=== PATIENT | female | born 2000 | race American Indian/Alaskan Native ===

== ENCOUNTER 2018-01-06 15:14 | Emergency (ER) | payer OTHER ==
[~2018-01-06] VITALS: Ht 180.3 cm; Wt 83.0 kg
[~2018-01-06 15:14] MED LIST: ADVIL200 MG; CEPHALEXIN500 MG PO; NORCO 5-325 TA1 EACH PO; ULTRAM50 MG PO
[2018-01-06] MEDS ORDERED: NAPROSYN500 MG PO (16:00)
== END 2018-01-06 16:30 | disposition home or self-care (01) ==
LOC: ED 15:14
DX: S16.1XXA Strain of muscle, fascia and tendon at neck level, initial encounter (principal); S39.012A Strain of muscle, fascia and tendon of lower back, initial encounter; Z88.0 Allergy status to penicillin; V43.62XA Car passenger injured in collision with other type car in traffic accident, initial encounter; W22.12XA Striking against or struck by front passenger side automobile airbag, initial encounter
CPT/HCPCS: 71046; 72040; 72100; 99283

== ENCOUNTER 2018-02-11 16:22 | Emergency (ER) | payer OTHER ==
[~2018-02-11] VITALS: Ht 180.3 cm; Wt 83.0 kg
[~2018-02-11 16:22] MED LIST changes: +NAPROSYN500 MG PO
[2018-02-11] MEDS ORDERED: BACLOFEN10 MG PO (17:38)
[2018-02-11] MEDS ORDERED: KETOROLAC TROME10 MG PO (17:38)
== END 2018-02-11 17:49 | disposition home or self-care (01) ==
LOC: ED 16:22
DX: M99.03 Segmental and somatic dysfunction of lumbar region (principal); Z88.0 Allergy status to penicillin; Z79.899 Other long term (current) drug therapy
CPT/HCPCS: 99282

== ENCOUNTER 2019-01-04 16:34 | Emergency (ER) | payer OTHER ==
[~2019-01-04] VITALS: Ht 180.3 cm; Wt 83.0 kg
[~2019-01-04 16:34] MED LIST changes: +BACLOFEN10 MG PO; +KETOROLAC TROME10 MG PO
== END 2019-01-04 17:42 | disposition home or self-care (01) ==
LOC: ED 16:34
DX: S83.91XA Sprain of unspecified site of right knee, initial encounter (principal); Z88.0 Allergy status to penicillin; Z79.899 Other long term (current) drug therapy; W00.0XXA Fall on same level due to ice and snow, initial encounter
CPT/HCPCS: 73560; 99283

== ENCOUNTER 2020-03-20 02:08 | Emergency (ER) | payer OTHER ==
[~2020-03-20] VITALS: Ht 180.3 cm; Wt 83.0 kg
== END 2020-03-20 11:40 | disposition home or self-care (01) ==
LOC: ED 02:08
DX: S61.512A Laceration without foreign body of left wrist, initial encounter (principal); Z88.1 Allergy status to other antibiotic agents; X78.9XXA Intentional self-harm by unspecified sharp object, initial encounter
CPT/HCPCS: 80053; 80176; 81001; 84443; 84703; 85025; 90471; 90715; 99285-25; G0480

== ENCOUNTER 2022-02-12 09:08 | Emergency (ER) | payer OTHER ==
[~2022-02-12] VITALS: Ht 180.3 cm; Wt 104.3 kg
== END 2022-02-12 11:59 | disposition home or self-care (01) ==
LOC: ED 09:08
DX: M23.92 Unspecified internal derangement of left knee (principal); Z88.0 Allergy status to penicillin
CPT/HCPCS: 73560; 99283-25

== ENCOUNTER 2022-09-14 06:47 | Emergency (ER) | payer OTHER ==
[~2022-09-14] VITALS: Ht 180.3 cm; Wt 111.0 kg
--- NOTE | 2022-09-14 17:06 | EKG ---
[facility] [address] [facility] [place], [place] [address] Signed Sinus tachycardia Otherwise normal ECG Confirmed by ABNER GUILLEN MD ([id number]) on 09/14/2022 5:05:57 PM Electronically Signed By: ABNER GUILLEN MD 09/14/22 1706 PATIENT NAME: SUBHASHJULY HOLSTEIN Electrocardiogram DATE OF : [birth year] PHYSICIAN: ABNER GUILLEN MD REPORT #: [id number] REPORT IS CONFIDENTIAL AND NOT TO BE RELEASED WITHOUT AUTHORIZATION
== END 2022-09-14 08:09 | disposition home or self-care (01) ==
LOC: ED 06:47
DX: R07.9 Chest pain, unspecified (principal); F14.10 Cocaine abuse, uncomplicated; Z88.0 Allergy status to penicillin
CPT/HCPCS: 36415; 80053; 84484; 85025; 93005; 93010; 96374; 96375; 99285-25; J2060; J2405; J7030

== ENCOUNTER 2023-02-11 14:40 | Emergency (ER) | payer OTHER ==
[~2023-02-11] VITALS: Ht 177.8 cm; Wt 110.7 kg
[2023-02-11] MEDS ORDERED: BENZONATATE100 MG PO ×2 (17:38→17:57)
[2023-02-11] MEDS ORDERED: PREDNISONE20 MG PO ×2 (17:38→17:57)
[2023-02-11] MEDS ORDERED: VENTOLIN HFA18 GM INH ×2 (17:38→17:57)
== END 2023-02-11 18:15 | disposition home or self-care (01) ==
LOC: ED 14:40
DX: J20.8 Acute bronchitis due to other specified organisms (principal); Z20.822 Contact with and (suspected) exposure to COVID-19; Z88.0 Allergy status to penicillin
CPT/HCPCS: 71045; 87502; 99284-25; A9270-GY; J2060; U0003

== ENCOUNTER 2023-07-26 11:15 | Emergency (ER) | payer OTHER ==
[~2023-07-26] VITALS: Ht 177.8 cm; Wt 111.9 kg
[~2023-07-26 11:15] MED LIST changes: +BENZONATATE100 MG PO; +PREDNISONE20 MG PO; +VENTOLIN HFA18 GM INH
[2023-07-26 12:15] LABS: BASOPHILS 0.4 % (0-2); HEMATOCRIT 44.9 % (35.0-50.0); HEMOGLOBIN 14.8 g/dL (12.0-18.0); LYMPHOCYTES 7.1 % (24-44); MCH 30.2 (27-36); MCV 91.3 fl (81-99); NEUTROPHILS 77.5 % (39-80); PLATELET COUNT 235 K/uL (140-440); RBC 4.92 M/ul (4.3-5.7); RDW 16.4 (10.5-15.0)
[2023-07-26 12:25] LABS: ALBUMIN 3.7 g/dL (3.4-5.0); ANION GAP 13.6 (7-21); BILIRUBIN, TOTAL 1.1 ng/dL (0.2-1.0); BUN/CREATININE RATIO 3.94 (6.0-28.6); CREATININE, SERUM 0.76 mg/dL (0.55-1.02); POTASSIUM 3.6 mmol/L (3.5-5.1); PROTEIN, TOTAL 7.4 g/dL (6.4-8.2)
[2023-07-26 12:44] LABS: INFLUENZA B NAA NEGATIVE (NEGATIVE); RESPIRATORY SYNCYTIAL VIR NAA NEGATIVE (NEGATIVE)
[2023-07-26] MEDS ORDERED: ONDANSETRON ODT8 MG PO (12:56)
[2023-07-26 13:10] VITALS: BP 133/97
== END 2023-07-26 13:11 | disposition home or self-care (01) ==
LOC: ED 11:15
PROVIDERS: Emergency Medicine
DX: U07.1 COVID-19 (principal); Z88.0 Allergy status to penicillin
CPT/HCPCS: 36415; 76705; 80053; 83690; 84703; 85025; 87502; 96374; 96375; 99284-25; C9803; J1885; J2405; J7030; U0002

== ENCOUNTER 2025-08-17 10:49 | Emergency (ER) | payer OTHER ==
[~2025-08-17] VITALS: Ht 177.8 cm; Wt 107.3 kg
[~2025-08-17 10:49] MED LIST changes: +ONDANSETRON ODT8 MG PO
[2025-08-17 11:17] VITALS: BP 125/77
== END 2025-08-17 11:19 | disposition left against medical advice (07) ==
LOC: ED 10:49
DX: Z02.89 Encounter for other administrative examinations (principal); O99.322 Drug use complicating pregnancy, second trimester; F19.90 Other psychoactive substance use, unspecified, uncomplicated; Z3A.26 26 weeks gestation of pregnancy; Z53.29 Procedure and treatment not carried out because of patient's decision for other reasons; Z88.0 Allergy status to penicillin
CPT/HCPCS: 99283

== ENCOUNTER 2025-10-26 05:40 | Inpatient (IN) | payer OTHER ==
[~2025-10-26] VITALS: Ht 177.8 cm; Wt 99.8 kg
[2025-10-26 06:41] LABS: AMNISURE ROM TEST POSITIVE
[2025-10-26] MEDS ORDERED: CALCIUM CARBONATE 500 MG CHEW PO PRN (07:45)
[2025-10-26] MEDS ORDERED: MAGNESIUM HYDROXIDE/AL HYDROX 30 ML CUP PO PRN (07:45)
[2025-10-26] MEDS ORDERED: TERBUTALINE SULFATE 1 MG/ML AMP SUB-Q PRN (07:45)
[2025-10-26] MEDS ORDERED: LIDOCAINE HCL 1% 30 ML SDV INJ PRN (07:45)
[2025-10-26] MEDS ORDERED: miSOPROStol 25 MCG TAB PO SCH (08:00)
[2025-10-26 08:18] LABS: MCH 30.3 PG (25.6-32.2); MCHC 33.7 g/dL (32.2-35.5); MCV 90.0 fL (79.4-94.8); RBC 4.09 M/uL (3.93-5.22)
[2025-10-26 09:02] LABS: AMPHETAMINES, URINE NEGATIVE (NEGATIVE); BARBITURATES, URINE NEGATIVE (NEGATIVE); BENZODIAZEPINE, URINE NEGATIVE (NEGATIVE); CANNABINOID, URINE NEGATIVE (NEGATIVE); COCAINE, URINE NEGATIVE (NEGATIVE); ECSTASY, URINE NEGATIVE (NEGATIVE); FENTANYL, URINE NEGATIVE (NEGATIVE); METHADONE, URINE NEGATIVE (NEGATIVE); OPIATES, URINE NEGATIVE (NEGATIVE); OXYCODONE, URINE NEGATIVE (NEGATIVE); PHENCYCLIDINE, URINE NEGATIVE (NEGATIVE)
[2025-10-26 09:07] LABS: ABO O; ANTIBODY SCREEN NEGATIVE; RH POSITIVE
[2025-10-26 09:31] VITALS: BP 111/69
[2025-10-26] MEDS ORDERED: OXYTOCIN/0.9 % SODIUM CHLORIDE 500 ML IV SCH (15:15)
[2025-10-26] MEDS ORDERED: LACTATED RINGER'S 1,000 ML IV PRN (16:30)
[2025-10-26] MEDS ORDERED: PENICILLIN G POTASSIUM 5 MUNITS in SODIUM CHLORIDE 0.9% 100 ML IV ONE (21:15)
--- NOTE | 2025-10-26 21:30 | PR ---
[facility] [address] [place], [place] [address] Signed Progress Notes IP Datetime Report Generated by CPN: 10/26/2025 21:30 PROGRESS NOTES: [id number] Impression: Reassuring Heart Rate Procedures: Intrauterine Pressure Catheter; Sterile Vag Exam Plan: Augmentation; Antibiotic Therapy Informed Consent Obtain: Vaginal Delivery; Risks, Benefits and Alternatives Discussed Other Informed Consents: Reviewed antibiotics VITAL SIGNS: [id number] Vital Signs: Reviewed; Within Normal Limits Vital Signs: Reviewed; Within Normal Limits EXAM: [id number] Dilatation: 1.5 Effacement: 60 Effacement: 70 Effacement: 60 Station: -3 Station: -3 Station: -3 Contractions: Irregular MEMBRANES: [id number] Amniotic Fluid Color: Clear ROM Note: Amnisure collected Comments: Pt seen and examined. Doing well. S/P 2 doses of oral cytotec. Pitocin was started at _16:30 and now at 6. Contractions mild and irregular. Cx now 1.5cm. Recommended IUPC to help us titrate pitocin to optimal level. Pt understands and agrees. IUPC placed w/out difficulty. Will titrate pit per protocol (low dose pit). Discussed GBS+ status and recommended initiation of abx. Pt reports "mild hives as a really young child" and no interval allergic reactions since. Recommended trial of PCN for prophylaxis and pt agrees. Will start now. All questions answered. Minimize SVE to decrease risk of chorio. All questions answered. Anticipate . FETUS A: [id number] FHR Baseline: 140 FHR Baseline: 145 Variability: Minimal - >Undetectable to <=5bpm Accelerations: 15X15 Decelerations: None FHR Category: Category II Presentation: Vertex *Electronically Signed* 10/26/252129 KIZZY WORKMAN) DO [facility] DATE OF : [birth year] PHYSICIAN: KIZZY WORKMAN) RPT #: [id number] REPORT IS CONFIDENTIAL AND NOT TO BE RELEASED WITHOUT AUTHORIZATION [facility] [address] [place] [id number] Signed Comments on Fetus A: No evidence of metabolic acidosis Comments on Fetus A: Reassuring for dates FETUS B: [id number] Signing Physician: Kizzy Workman DO Copies: ~ *Electronically Signed* 10/26/252129 KIZZY WORKMAN) DO [facility] DATE OF : [birth year] PHYSICIAN: KIZZY WORKMAN (SUZI) DO RPT #: [id number] REPORT IS CONFIDENTIAL AND NOT TO BE RELEASED WITHOUT AUTHORIZATION
[2025-10-27] MEDS ORDERED: PENICILLIN G POTASSIUM 2.5 MUNITS in SODIUM CHLORIDE 0.9% 100 ML IV SCH (01:15)
[2025-10-27] MEDS ORDERED: ePHEDrine sulfate 5 MG/ML SYRINGE IV PRN (01:15)
[2025-10-27] MEDS ORDERED: LACTATED RINGER'S 500 ML IV PRN (01:15)
[2025-10-27] MEDS ORDERED: ROPIVACAINE 0.2% 200 ML BAG EPIDURAL SCH (01:15)
[2025-10-27] MEDS ORDERED: LACTATED RINGER'S 2,000 ML IV ONE (01:15)
[2025-10-27] MEDS ORDERED: ROPIVACAINE 0.2% 200 ML BAG ONE (01:18)
--- NOTE | 2025-10-27 03:57 | PR ---
[facility] [address] [facility] [place], [place] [address] Signed Progress Notes IP Datetime Report Generated by CPN: 10/27/2025 03:57 Impression: Normal Progression of Labor; Reassuring Heart Rate Procedures: Intrauterine Pressure Catheter; Sterile Vag Exam Plan: Continue Present Management; Augmentation Informed Consent Obtain: Vaginal Delivery Dilatation: 1.5 Effacement: 60 Effacement: 60 Station: -3 Station: -3 Contractions: q 2-3 min Comments: Pt seen and examined. Doing well. Comfortable w/ epidural which was kindly placed by anesthesia. IUPC stopped working and RN requested replacement to help w/ pitocin monitoring. Cervix largely unchanged howevere softer and much more anterior. IUPC replaced w/out difficulty. Continue pitocin augmentation. Reviewed Cat 1 tracing, afebrile status, and tolerated pen G well. Variability: Moderate 6-25bpm Decelerations: None FHR Category: Category I Signing Physician: Kizzy Workman DO Copies: ~ *Electronically Signed* 10/27/25 0357 KIZZY WORKMAN (SUZI) DO PATIENT NAME: CULLENJULY CHANDLER PROGRESS NOTE DATE OF : [birth year] PHYSICIAN: KIZZY WORKMAN) DO RPT #: [id number] REPORT IS CONFIDENTIAL AND NOT TO BE RELEASED WITHOUT AUTHORIZATION
[2025-10-27] MEDS ORDERED: SODIUM CHLORIDE 0.9% 20 ML IV ONE (16:34)
[2025-10-27] MEDS ORDERED: Ropivacaine HCl 0.5% 30 ML VIAL ONE (16:34)
[2025-10-27] MEDS ORDERED: fentaNYL citrate 100 MCG/2 ML VIAL ONE ×3 (16:35→23:36)
[2025-10-27] MEDS ORDERED: LACTATED RINGER'S 1,000 ML IV SCH (20:45)
[2025-10-27] MEDS ORDERED: MORPHINE SULFATE 1 MG/ML VIAL ONE ×2 (22:06→23:36)
[2025-10-27] MEDS ORDERED: CEFAZOLIN SODIUM 2 GM in SODIUM CHLORIDE 0.9% 100 ML IV SCH (22:37)
[2025-10-27] MEDS ORDERED: AZITHROMYCIN 500 MG in DEXTROSE 5% 250 ML IV ONE (22:45)
[2025-10-27] MEDS ORDERED: CEFAZOLIN SODIUM 3 GM in SODIUM CHLORIDE 0.9% 100 ML IV SCH (22:59)
[2025-10-27 23:00] LABS: IS CROSSMATCH COMPATIBLE
[2025-10-27] MEDS ORDERED: TRANEXAMIC ACID IN NACL,ISO-OS 100 ML IV ONE (23:10)
[2025-10-27 23:24] LABS: ABO O; RH POSITIVE
[2025-10-27] MEDS ORDERED: LIDOCAINE HCL 2% 5 ML SDV ONE (23:36)
[2025-10-27] MEDS ORDERED: BUPIVACAINE 0.75% IN DEXTROSE 2 ML AMP ONE (23:36)
[2025-10-27] MEDS ORDERED: OXYTOCIN 10 UNITS/ML VIAL ONE (23:36)
[2025-10-27] MEDS ORDERED: PHENYLEPHRINE HCL IN 0.9% NACL 1 MG/10 ML SYR ONE (23:51)
[2025-10-28] MEDS ORDERED: HYDROmorphone HCL 1 MG/ML SYR IV PRN (00:30)
[2025-10-28] MEDS ORDERED: PROCHLORPERAZINE EDISYLATE 10 MG/2 ML VIAL IV PRN ×2 (00:30→01:15)
[2025-10-28] MEDS ORDERED: NALOXONE HCL 0.4 MG SYR IV PRN (00:30)
[2025-10-28] MEDS ORDERED: SODIUM CHLORIDE 0.9% 20 ML IV ONE (00:31)
[2025-10-28] MEDS ORDERED: DEXAMETHASONE SOD PHOS 4 MG/ML VIAL ONE (00:31)
[2025-10-28] MEDS ORDERED: Ropivacaine HCl 0.5% 30 ML VIAL ONE (00:31)
[2025-10-28] MEDS ORDERED: miSOPROStol 200 MCG TAB PR ONE (01:00)
[2025-10-28] MEDS ORDERED: SENNOSIDES/DOCUSATE 1 EA TAB PO SCH (01:08)
[2025-10-28] MEDS ORDERED: LACTATED RINGER'S 1,000 ML IV SCH (01:10)
[2025-10-28] MEDS ORDERED: PROMETHAZINE HCL 25 MG SUPP PR PRN (01:15)
[2025-10-28] MEDS ORDERED: METOCLOPRAMIDE HCL 10 MG/2 ML SDV IV PRN (01:15)
[2025-10-28] MEDS ORDERED: LIDOCAINE 2% VISCOUS 6 ML SYR TOP ONE (01:15)
[2025-10-28] MEDS ORDERED: OXYCODONE HCL 5 MG TAB PO PRN (01:15)
[2025-10-28] MEDS ORDERED: OXYTOCIN/0.9 % SODIUM CHLORIDE 500 ML IV SCH (01:15)
[2025-10-28] MEDS ORDERED: PROMETHAZINE HCL 25 MG TAB PO PRN (01:15)
[2025-10-28 01:36] VITALS: BP 107/73
--- NOTE | 2025-10-28 01:47 | NUR ---
10/28/25 0147 PALOMO MACK 0114 PT ARRIVED TO PACU IN [facility] ROOM 105 VIA STREACHER FROM [place]. PT HAS NATURAL AIRWAY, PT IS AWAKE AND ORIENTED. PT BREATHING EQUAL AND UNALBORED. PT HAS LR WITH 20 UNITS OF PIT RUNNING INTO IV IN RIGHT HAND CONTUNOUSLY. PT HAS SALINE LOCKED IV IN LEFT FOREARM. PT REPORTS NO PAIN OR NAUSEA AT THIS TIME. PT SPOUSE IN ROOM WITH BABY. VITALS TAKEN, REPORT TAKEN FROM PARMINDER SWIFT. 0120 VITALS TAKEN. FUNDLE MASSAGE DONE NOTED. PT REPORTS NO PAIN OR NAUSEA. PT SPINAL IS NOTED. 0125 VITALS TAKEN AND FUNDLE MASSAGE DONE NOTED. DR IN ROOM SPEAKING WITH PT. 0130 VITALS TAKEN AND FUNDLE MASSAGE DONE NOTED. [facility] RN IN ROOM ASSISTING WITH PT WITH BABY AT BREAST 0136 REPORT GIVEN TO [facility] RN, CARE TRANSFERRED AT THIS TIME. SPINAL IS AT NIPPLE LINE NOTED. PT REPORTS NO PAIN OR NAUSEA AT THIS TIME. PT BREATHING EQUAL AND UNLABORED. PT HAS BABY AT BREAST. LR WITH 20 UNITS OF PIT CONTINUES TO RUN INTO IV IN RIGHT HAND CONTINUOUSLY. PT HAS NO QUESTIONS AT THIS TIME.
[2025-10-28] MEDS ORDERED: ACETAMINOPHEN 500 MG TAB PO SCH (06:00)
[2025-10-28] MEDS ORDERED: SIMETHICONE 80 MG CHEW PO SCH (07:00)
[2025-10-28] MEDS ORDERED: IBUPROFEN 600 MG TAB PO SCH (14:30)
[2025-10-29] MEDS ORDERED: IBUPROFEN 600 MG TAB PO SCH (02:00)
--- NOTE | 2025-10-29 10:06 | OR ---
[address] [address] Signed DATE OF OPERATION: 10/27/2025 SURGEON: Tarsha Lehman MD PREOPERATIVE DIAGNOSES: 1. Intrauterine at 37 and 3/7th weeks. 2. Premature rupture of membranes. 3. Maternal intolerance of labor. 4. Nonreassuring surveillance. POSTOPERATIVE DIAGNOSES: 1. Intrauterine at 37 and 3/7th weeks. 2. Premature rupture of membranes. 3. Maternal intolerance of labor. 4. Nonreassuring surveillance. PROCEDURE: Primary low transverse section. FINDINGS: Clear amniotic fluid, female fetus in vertex presentation. Apgars of 8 and 9, weight of 4030 g or 8 pounds 14 ounces. Normal uterus, ovaries, and tubes. ANESTHESIA: Spinal. SILVER MINER BLASTING: None. IV FLUIDS: 450 mL of crystalloid. QUANTITATIVE BLOOD LOSS: 645 mL. URINE OUTPUT: 60 mL of clear urine. DRAINS: Terry to gravity. Electronically Signed By: TARSHA LEHMAN MD 10/29/25 1006 PATIENT NAME: JULY CULLEN CABOT OPERATIVE REPORT DATE OF : [birth year] REPORT #: [id number] PHYSICIAN: TARSHA LEHMAN MD PCP: LAQUITA AUGUSTINE PAC REPORT IS CONFIDENTIAL AND NOT TO BE RELEASED WITHOUT AUTHORIZATION [address] [address] Signed SPECIMENS: None. COUNTS: Correct x2. COMPLICATIONS: None apparent. TECHNIQUE IN DETAIL: With informed consent, the patient was taken to the operating room, where spinal anesthetic was placed. She was given 3 g of Ancef intravenously and 500 mg of azithromycin IV per protocol. Her lower extremities were placed in pneumatic compression devices using SCDs for DVT prophylaxis. She was prepped and draped in sterile fashion including the vaginal prep. Time-out was performed per protocol. Under adequate spinal analgesia, an approximately 8-inch Pfannenstiel skin incision was made. Sharp dissection was carried down to the layer of rectus fascia which was nicked in the midline. This rectus fascial leslee was enlarged bilaterally using sharp dissection both left and right sides. The rectus muscles were taken down from the fascia using a combination of sharp and blunt dissection both superiorly and inferiorly. The rectus muscles were in the midline at the most superior aspect and the separation was carried out inferiorly using sharp dissection. The parietal peritoneum was entered bluntly and the peritoneal opening was enlarged with combination of sharp and then blunt dissection. A bladder blade was then placed. Using a scalpel, low transverse uterine incision was made. Sharp dissection was carried down to the superficial layers of the incision. The remainder of the myometrium and endometrium were punctured with surgeon's finger. Once uterine cavity was breached, the hysterotomy site was enlarged using blunt dissection in a superior to inferior direction. The surgeon's hand was then placed into the lower uterine segment. head was elevated and delivered with fundal pressure and gentle traction in the axilla. Cord was clamped x2 after approximately 15 seconds and the cord was cut and the baby was handed to the respiratory team present for transition of the fetus. Intravenous oxytocin was given. Cord blood was taken per protocol. The placenta delivered with fundal massage and gentle traction. The uterus was a bit boggy, so we injected her with 0.2 mg of Methergine IM. This improved uterine tone. We also gave her 1 g of tranexamic acid intravenously for hemorrhage prophylaxis. Uterus was externalized and the uterine cavity was curetted with laparotomy sponges removing all clots and product of conception. The uterine incision was then closed using 0 Monocryl Electronically Signed By: TARSHA LEHMAN MD 10/29/25 1006 [facility] RE[facility] DATE OF : [birth year] REPORT #: [id number] PHYSICIAN: TARSHA LEHMAN MD PCP: LAQUITA AUGUSTINE PAC REPORT IS CONFIDENTIAL AND NOT TO BE RELEASED WITHOUT AUTHORIZATION [facility] [address] [place], [place] [address] Signed in a running locked fashion. Second imbricating layer of 0 Monocryl was also placed in a running fashion. Posterior cul-de-sac was cleared of all blood and clots. The adnexa were examined with the above-mentioned findings. The hysterotomy site was re-examined and noted to be hemostatic. The uterus was returned to the pelvis. The left and right paracolic gutters were cleared of all blood and clot. The uterine incision was inspected one final time and again noted to be hemostatic. The rectus muscles and peritoneum were reapproximated using 2-0 chromic in a running fashion. Rectus muscle bellies were inspected and hemostasis was achieved with electrocautery. The rectus fascia was reapproximated with 0 Vicryl in a running fashion. Superficial incision was irrigated and rendered hemostatic with electrocautery. The subcutaneous tissue was reapproximated with 2-0 chromic in a running manner. The skin was closed with the Endo stapler device. Steri-Strips and skin glue were applied. Bandage was placed over the incision. The uterus was expressed of all clot. 800 mcg of misoprostol were given rectally at the end of the procedure. DISPOSITION: Patient and baby were taken to the recovery room in stable condition. Tarsha Lehman MD BB/MODL /[id number] Copies: ~ Electronically Signed By: TARSHA LEHMAN MD 10/29/25 1006 [facility] RE[facility] DATE OF : [birth year] REPORT #: [id number] PHYSICIAN: TARSHA LEHMAN MD PCP: LAQUITA AUGUSTINE PAC REPORT IS CONFIDENTIAL AND NOT TO BE RELEASED WITHOUT AUTHORIZATION
[2025-10-29 20:14] LABS: RAPID PLASMA REAGIN (RPR) Non Reactive (Non Reactive)
== END 2025-10-30 12:00 | disposition home or self-care (01) | DRG 788 ==
LOC: FBCO 05:40 → FBC 07:10
PROVIDERS: Obstetrics & Gynecology; ADMIT Obstetrics & Gynecology; ATTEND Obstetrics & Gynecology
PROC: 3E03329 Introduction of Other Anti-infective into Peripheral Vein, Percutaneous Approach (ICD-10-PCS; 2025-10-26)
PROC: 10D00Z1 Extraction of Products of Conception, Low, Open Approach (ICD-10-PCS; principal; 2025-10-28 00:01)
PROC: 10H07YZ Insertion of Other Device into Products of Conception, Via Natural or Artificial Opening (ICD-10-PCS; principal; 2025-10-28 00:01)
DX: O42.12 Full-term premature rupture of membranes, onset of labor more than 24 hours following rupture (principal); Z3A.37 37 weeks gestation of pregnancy; Z37.0 Single live birth; O76 Abnormality in fetal heart rate and rhythm complicating labor and delivery
CPT/HCPCS: 01961; 36415; 80307; 84112; 85027; 86850; 86900; 86901; 86922; 94799; A9270; G0463; J0165; J0456; J0688; J1100; J2003; J2274; J2405; J2540; J2590; J2795; J3010; J7060; J7121